=== PATIENT | male | born 1940 | race Caucasian/White ===

== ENCOUNTER 2017-05-20 23:33 | Emergency (ER) | payer MEDICARE, BC ==
--- NOTE | 2017-05-20 23:41 | EDM.PDOC ---
ED HPI GENERAL MEDICAL PROBLEM - General Chief Complaint: Gastrointestinal Problem Stated Complaint: Bloated Feeling; Mid back pain Time Seen by Provider: 05/20/17 23:33 Source of Information: Reports: Patient, Family, RN, RN Notes Reviewed History Limitations: Reports: No Limitations - History of Present Illness INITIAL COMMENTS - FREE TEXT/NARRATIVE: Patient presents to the ED at [facility] complaining of feeling bloated and mid back pain. Symptoms began around 10pm. Patient states he normally feels good. He was able to eat supper earlier tonight without any problems. 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 Patient denies any chest pain. No SOB, although he does wear oxygen. He is passing gas. He did try to have a BM earlier without success. Denies any UTI symptoms. Does have a history of kidney stones. Onset: Today, Sudden Onset Date: 05/20/17 Onset Time: 22:00 Duration: Constant, Getting Worse Location: Reports: Abdomen, Back Quality: Reports: Pressure Severity: Moderate Improves with: Reports: None Worsens with: Reports: Movement Context: Denies: Activity, Exercise, Lifting, Sick Contact, Trauma Associated Symptoms: Reports: No Other Symptoms - Related Data Allergies Allergy/AdvReac Type Severity Reaction Status Date / Time No Known Allergies Allergy Verified 05/21/17 00:21 Home Meds: Home Meds Albuterol [Proair HFA] 2 puff INH Q4H PRN 03/06/16 [History] Budesonide/Formoterol [Symbicort 160-4.5 MCG] 2 puff INH BID 03/06/16 [History] Diltiazem HCl [Diltiazem 24Hr ER] 120 mg PO DAILY 03/06/16 [History] Furosemide [Furosemide] 40 mg PO DAILY 03/06/16 [History] Simvastatin [Simvastatin] 40 mg PO DAILY 03/06/16 [History] SitaGLIPtin [Januvia] 100 mg PO DAILY 03/06/16 [History] amLODIPine Besylate/Benazepril [Amlodipine-Benazepril 5-10 MG] 1 cap PO DAILY [History] glipiZIDE [Glipizide] 10 mg PO BID 03/06/16 [History] metFORMIN [Glucophage] 1,000 mg PO BID 03/06/16 [History] Albuterol [Ventolin HFA] 8 gm INH Q6H PRN 05/21/17 [History] Aspirin [Adult Low Dose Aspirin EC] 81 mg PO DAILY 05/21/17 [History] Canagliflozin [Invokana] 300 mg PO DAILY 05/21/17 [History] Multivitamin [Multivitamins] 1 each PO DAILY 05/21/17 [History] Polyethylene Glycol 3350 [MiraLAX] 17 gm PO DAILY PRN 05/21/17 [History] Potassium Chloride [Klor-Con 10] 10 meq PO DAILY 05/21/17 [History] Tamsulosin HCl [Flomax] 0.4 mg PO DAILY 05/21/17 [History] Past Medical History Cardiovascular History: Reports: High Cholesterol, Hypertension, Pulmonary Hypertension Respiratory History: Reports: Sleep Apnea, Other (See Below) Other Respiratory History: On oxygen at home, 4liters per N/C., SOB, Hypoxia Endocrine/Metabolic History: Reports: Diabetes, Type II ED ROS GENERAL - Review of Systems Review Of Systems: See Below Constitutional: Denies: Fever, Chills, Weakness Respiratory: Denies: Shortness of Breath, Cough Cardiovascular: Denies: Chest Pain, Palpitations GI/Abdominal: Reports: Abdominal Pain, Distension. Denies: Diarrhea, Nausea, Vomiting Musculoskeletal: Reports: Back Pain Skin: Reports: No Symptoms Neurological: Reports: No Symptoms ED EXAM, GI/ABD - Physical Exam Exam: See Below Exam Limited By: No Limitations General Appearance: Alert, Mild Distress, Obese Respiratory/Chest: No Respiratory Distress, Lungs Clear, Decreased Breath Sounds Cardiovascular: Regular Rate, Rhythm GI/Abdominal Exam: Non-Tender, Distended, Abnormal Bowel Sounds (Hyperactive) Neurological: Alert, Oriented Skin Exam: Warm, Dry, Intact, Normal Color, No Rash EKG INTERPRETATION EKG Date: 05/21/17 Time: 23:54 Rhythm: NSR Rate (Beats/Min): 69 [place]: Normal P-Wave: Present QRS: RBBB ST-T: Normal QT: Normal WI/PQ Interval: 0.20 Comparison: NA - No Prior EKG EKG Interpretation Comments: 1. Sinus Rhythm with Sinus Arrhythmia 2. Low QRS voltage in precordial leads 3. Incomplete RBBB 4. Left Anterior Fascicular block 5. Possible anterior NH, probably old Course - Vital Signs Last Recorded V/S: Last Vital Signs Temp 35.3 C 05/20/17 23:33 Pulse 78 05/21/17 00:30 Resp 16 05/21/17 00:30 BP 128/88 05/21/17 00:30 Pulse Ox 96 05/21/17 00:30 - Orders/Labs/Meds Orders: Active Orders 24 hr Category Date Time Status EKG 12 Lead [EKG Documentation Completion] [RC] STAT Care 05/20/17 23:41 Active EKG 12 Lead [EKG Documentation Completion] [RC] STAT Care 05/21/17 00:57 Active Abdomen 2V AP Flat Upright [CR] Stat Exams 05/20/17 23:42 Taken Abdomen Pelvis wo Cont [CT] Stat Exams 05/21/17 00:58 Ordered Sodium Chloride 0.9% [Saline Flush] Med 05/20/17 23:43 Active 10 ml FLUSH ASDIRECTED PRN Peripheral IV Insertion Adult [OM.PC] Routine Oth 05/20/17 23:43 Ordered Medication Orders Sodium Chloride (Saline Flush) 10 ml FLUSH ASDIRECTED PRN PRN Reason: Keep Vein Open Labs: Laboratory Tests 05/21/17 05/21/17 05/21/17 Range/Units 00:07 00:07 00:07 WBC 10.5 H (4.0-10.0) x10^3/uL RBC 4.68 (4.5-6.0) x10^6/uL Hgb 14.3 (14.0-18.0) g/dL Hct 43.3 (40.0-52.0) % MCV 92.5 (78.0-93.0) fL MCH 30.6 (26.0-32.0) pg MCHC 33.0 (32.0-36.0) g/dL RDW Coeff of Willie 13.9 (10.0-15.0) % Plt Count 158 (130-400) x10^3/uL Neut % (Auto) 79.1 (50.0-80.0) % Lymph % (Auto) 12.3 L (25.0-50.0) % [place] % (Auto) 7.5 (2.0-11.0) % Eos % (Auto) 0.8 (0.0-4.0) % Baso % (Auto) 0.3 (0.2-1.2) % Sodium 141 (136-145) mmol/L Potassium 4.2 (3.5-5.1) mmol/L Chloride 105 (98-107) mmol/L Carbon Dioxide 29 (21-32) mmol/L BUN 19 H (7-18) mg/dL Creatinine 1.6 H (0.70-1.30) mg/dL Est Cr Clr Drug Dosing TNP Estimated GFR (MDRD) 42 Glucose 180 H (74-106) mg/dL Lactic Acid 1.0 (0.4-2.0) mmol/L Calcium 8.9 (8.5-10.1) mg/dL Creatine Kinase 34 L (39-308) U/L Troponin I 0.186 H* (<=0.056) ng/mL C-Reactive Protein 0.3 (<=0.9) mg/dL Amylase 31 (25-115) U/L Lipase 134 (73-393) U/L Urine Color (YELLOW) Urine Appearance (CLEAR) Urine pH (5.0-8.0) Ur Specific [place] Urine Protein (NEGATIVE) mg/dL Urine Glucose (UA) (NEGATIVE) mg/dL Urine Ketones (NEGATIVE) mg/dL Urine Occult Blood (NEGATIVE) Urine Nitrite (NEGATIVE) Urine Bilirubin (NEGATIVE) Urine Urobilinogen (0.2) EU/dL Ur Leukocyte Esterase (NEGATIVE) Urine RBC (NOT SEEN) /HPF Urine WBC (NOT SEEN) /HPF Ur Squamous Epith Cells (NEGATIVE) /HPF Amorphous Sediment Urine Bacteria (NEGATIVE) /HPF Urine Mucus (NEGATIVE) /LPF 05/21/17 Range/Units 00:35 WBC (4.0-10.0) x10^3/uL RBC (4.5-6.0) x10^6/uL Hgb (14.0-18.0) g/dL Hct (40.0-52.0) % MCV (78.0-93.0) fL MCH (26.0-32.0) pg MCHC (32.0-36.0) g/dL RDW Coeff of Willie (10.0-15.0) % Plt Count (130-400) x10^3/uL Neut % (Auto) (50.0-80.0) % Lymph % (Auto) (25.0-50.0) % [place] % (Auto) (2.0-11.0) % Eos % (Auto) (0.0-4.0) % Baso % (Auto) (0.2-1.2) % Sodium (136-145) mmol/L Potassium (3.5-5.1) mmol/L Chloride (98-107) mmol/L Carbon Dioxide (21-32) mmol/L BUN (7-18) mg/dL Creatinine (0.70-1.30) mg/dL Est Cr Clr Drug Dosing Estimated GFR (MDRD) Glucose (74-106) mg/dL Lactic Acid (0.4-2.0) mmol/L Calcium (8.5-10.1) mg/dL Creatine Kinase (39-308) U/L Troponin I (<=0.056) ng/mL C-Reactive Protein (<=0.9) mg/dL Amylase (25-115) U/L Lipase (73-393) U/L Urine Color Light yellow (YELLOW) Urine Appearance Slightly cloudy H (CLEAR) Urine pH 5.0 (5.0-8.0) Ur Specific [place] 1.010 Urine Protein Negative (NEGATIVE) mg/dL Urine Glucose (UA) 500 H (NEGATIVE) mg/dL Urine Ketones Trace H (NEGATIVE) mg/dL Urine Occult Blood Moderate H (NEGATIVE) Urine Nitrite Negative (NEGATIVE) Urine Bilirubin Negative (NEGATIVE) Urine Urobilinogen 0.2 (0.2) EU/dL Ur Leukocyte Esterase Negative (NEGATIVE) Urine RBC 10-20 H (NOT SEEN) /HPF Urine WBC Not seen (NOT SEEN) /HPF Ur Squamous Epith Cells Rare (NEGATIVE) /HPF Amorphous Sediment Rare Urine Bacteria Rare (NEGATIVE) /HPF Urine Mucus Rare H (NEGATIVE) /LPF Meds: Medications Generic Name Dose Route Start Last Admin Trade Name Freq PRN Reason Stop Dose Admin Sodium Chloride 10 ml 05/20/17 23:43 Saline Flush FLUSH ASDIRECTED PRN Keep Vein Open Departure - Departure Time of Disposition: 01:58 Disposition: Refer to Observation Condition: Good Clinical Impression: Elevated troponin - Discharge Information ED Communication - ED Communication Date/Time Date: 05/21/17 Time Called: 01:13 - Discussed Case With (1) Discussed Case With (1): Outpatient Provider Person/s Notified (1): Cindy Reagan - Conversation Summary Patient Aware of Amendments fo Care Plan: Yes Summary Comment: Discussed elevated troponin with Dr. Cindy Reagan, Cardiology. It is felt it may be from his current illness or elevated Creat. Dr. Reagan recommend admission for serial monitoring of Troponins with EKG's. - Problem List Review Problem List Initiated/Reviewed/Updated: Yes - My Orders Last 24 Hours: My Active Orders 05/20/17 23:41 EKG 12 Lead [EKG Documentation Completion] [RC] STAT 05/20/17 23:42 Abdomen 2V AP Flat Upright [CR] Stat 05/20/17 23:43 Sodium Chloride 0.9% [Saline Flush] 10 ml FLUSH ASDIRECTED PRN Peripheral IV Insertion Adult [OM.PC] Routine 05/21/17 00:57 EKG 12 Lead [EKG Documentation Completion] [RC] STAT 05/21/17 00:58 Abdomen Pelvis wo Cont [CT] Stat - Assessment/Plan Last 24 Hours: My Active Orders 05/20/17 23:41 EKG 12 Lead [EKG Documentation Completion] [RC] STAT 05/20/17 23:42 Abdomen 2V AP Flat Upright [CR] Stat 05/20/17 23:43 Sodium Chloride 0.9% [Saline Flush] 10 ml FLUSH ASDIRECTED PRN Peripheral IV Insertion Adult [OM.PC] Routine 05/21/17 00:57 EKG 12 Lead [EKG Documentation Completion] [RC] STAT 05/21/17 00:58 Abdomen Pelvis wo Cont [CT] Stat Plan: 05/21/2017 01:[address] Brittny Nesbitt. Patient will be admitted for monitoring Troponins with EKG. Awaiting CT Abd/Pelvis to r/o stone and eval ileus. Patient aware of admission and agrees with POC.
[2017-05-20] MEDS ORDERED: Sodium Chloride 0.9% 10 ML Syringe FLUSH PRN (23:43)
[2017-05-21 00:53] LABS: CHLORIDE,CL 105 mmol/L (98-107); SODIUM,NA 141 mmol/L (136-145)
[2017-05-21] MEDS ORDERED: Sodium Chloride 0.9% 1,000 ML IV ONE (02:59)
[2017-05-21] MEDS ORDERED: cefTRIAXone 1 GM Vial IVPUSH ONE (03:00)
[2017-05-21] MEDS ORDERED: Morphine 2 MG/ML Syringe IVPUSH ONE ×2 (03:00→03:05)
[2017-05-21 03:22] VITALS: BP 134/53
== END 2017-05-21 04:08 | disposition other institution (70) ==
LOC: VM.ED 23:33 → UNDOADMOB 05-21 01:57 → VM.MS 05-21 01:57 → UNDODISOB 05-21 01:58
DX: R79.89 Other specified abnormal findings of blood chemistry (principal); I10 Essential (primary) hypertension; I27.2 Other secondary pulmonary hypertension; E78.00 Pure hypercholesterolemia, unspecified; E11.9 Type 2 diabetes mellitus without complications; Z79.84 Long term (current) use of oral hypoglycemic drugs; Z79.82 Long term (current) use of aspirin; Z79.899 Other long term (current) drug therapy
CPT/HCPCS: 74020; 74176; 80048; 81001; 82150; 82550; 83605; 83690; 84484; 85025; 86140; 93005; 96361; 96374; 96375; 99285; J0696; J2270; J7030; 99284-GF

== ENCOUNTER 2017-06-24 19:09 | Observation (INO) | payer MEDICARE, BC ==
--- NOTE | 2017-06-24 20:17 | EDM.PDOC ---
ED HPI GENERAL MEDICAL PROBLEM - General Chief Complaint: Gastrointestinal Problem Stated Complaint: Constipation; Bloating Time Seen by Provider: 06/24/17 19:11 Source of Information: Reports: Patient, Family, RN, RN Notes Reviewed History Limitations: Reports: No Limitations - History of Present Illness INITIAL COMMENTS - FREE TEXT/NARRATIVE: Patient presents the emergency room at [facility] complaining of constipation and bloating. The patient states he recently underwent a left ureter stent removal with lithotripsy today at [facility] in [place]. Patient states that he mentioned to his care providers that he is constipated, but the patient states nothing was done. The patient states that he's had issues with his bowels for the past couple of months. The patient has been seen on several different occasions for his current symptomatology. Patient states that he does get abdominal cramping on an irregular basis. The patient denies any diarrhea. The patient states that his stools are hard and firm. The patient states that he has a difficult time passing stool. Otherwise no other concerns. Onset: Gradual Duration: Chronic - Related Data Allergies Allergy/AdvReac Type Severity Reaction Status Date / Time No Known Allergies Allergy Verified 05/21/17 00:21 Home Meds: Home Meds Albuterol [Proair HFA] 2 puff INH Q4H PRN 03/06/16 [History] Budesonide/Formoterol [Symbicort 160-4.5 MCG] 2 puff INH BID 03/06/16 [History] Diltiazem HCl [Diltiazem 24Hr ER] 120 mg PO DAILY 03/06/16 [History] Furosemide [Furosemide] 40 mg PO DAILY 03/06/16 [History] Simvastatin [Simvastatin] 40 mg PO DAILY 03/06/16 [History] SitaGLIPtin [Januvia] 100 mg PO DAILY 03/06/16 [History] amLODIPine Besylate/Benazepril [Amlodipine-Benazepril 5-10 MG] 1 cap PO DAILY [History] glipiZIDE [Glipizide] 10 mg PO BID 03/06/16 [History] metFORMIN [Glucophage] 1,000 mg PO BID 03/06/16 [History] Albuterol [Ventolin HFA] 8 gm INH Q6H PRN 05/21/17 [History] Aspirin [Adult Low Dose Aspirin EC] 81 mg PO DAILY 05/21/17 [History] Canagliflozin [Invokana] 300 mg PO DAILY 05/21/17 [History] Multivitamin [Multivitamins] 1 each PO DAILY 05/21/17 [History] Polyethylene Glycol 3350 [MiraLAX] 17 gm PO DAILY PRN 05/21/17 [History] Potassium Chloride [Klor-Con 10] 10 meq PO DAILY 05/21/17 [History] Tamsulosin HCl [Flomax] 0.4 mg PO DAILY 05/21/17 [History] Past Medical History Cardiovascular History: Reports: High Cholesterol, Hypertension, Pulmonary Hypertension Respiratory History: Reports: Sleep Apnea, Other (See Below) Other Respiratory History: On oxygen at home, 4liters per N/C., SOB, Hypoxia Endocrine/Metabolic History: Reports: Diabetes, Type II Social & Family History - Tobacco Use Smoking Status *Q: Unknown Ever Smoked ED ROS GENERAL - Review of Systems Review Of Systems: See Below Constitutional: Denies: Fever, Chills, Weakness Respiratory: Denies: Shortness of Breath, Cough Cardiovascular: Denies: Chest Pain, Palpitations GI/Abdominal: Reports: Abdominal Pain, Constipation, Distension. Denies: Black Stool, Bloody Stool, Diarrhea, Nausea, Vomiting Skin: Reports: No Symptoms Neurological: Reports: No Symptoms. Denies: Dizziness, Headache ED EXAM, GI/ABD - Physical Exam Exam: See Below Exam Limited By: No Limitations General Appearance: Alert, No Apparent Distress, Obese Respiratory/Chest: No Respiratory Distress, Lungs Clear, Normal Breath Sounds Cardiovascular: Regular Rate, Rhythm GI/Abdominal Exam: Distended, Rigid, Abnormal Bowel Sounds (Hypoactive). No: Rebound Neurological: Alert, Oriented Course - Orders/Labs/Meds Orders: Active Orders 24 hr Category Date Time Status Admission Status [Patient Status] [ADT] Routine ADT 06/24/17 21:01 Ordered Abdomen 2V AP Flat Upright [CR] Stat Exams 06/24/17 20:17 Taken Departure - Departure Time of Disposition: 21:03 Disposition: Refer to Observation Condition: Good Clinical Impression: Abdominal pain, Abdominal pain, Constipation - Discharge Information - Problem List & Annotations (1) Abdominal pain SNOMED Code(s): 48496471 Code(s): R10.9 - UNSPECIFIED ABDOMINAL PAIN Status: Acute Priority: High Current Visit: Yes Qualifiers: Abdominal location: generalized Qualified Code(s): R10.84 - Generalized abdominal pain (2) Constipation SNOMED Code(s): 85791665 Code(s): K59.00 - CONSTIPATION, UNSPECIFIED Status: Chronic Current Visit : Yes Qualifiers: Constipation type: slow transit constipation Qualified Code(s): K59.01 - Slow transit constipation - Problem List Review Problem List Initiated/Reviewed/Updated: Yes - My Orders Last 24 Hours: My Active Orders 06/24/17 20:17 Abdomen 2V AP Flat Upright [CR] Stat 06/24/17 21:01 Admission Status [Patient Status] [ADT] Routine - Assessment/Plan Admission H&P: Please use this note as an admission H&P Last 24 Hours: My Active Orders 06/24/17 20:17 Abdomen 2V AP Flat Upright [CR] Stat 06/24/17 21:01 Admission Status [Patient Status] [ADT] Routine
[2017-06-24] MEDS ORDERED: Sodium Chloride 0.9% 1,000 ML IV ONE (21:47)
[2017-06-24] MEDS ORDERED: Sodium Chloride 0.9% 10 ML Syringe FLUSH PRN (21:47)
[2017-06-24] MEDS ORDERED: Polyethylene Glycol 3350 Powder 17 GM Packet PO ONE (21:50)
[2017-06-24] MEDS ORDERED: methylPREDNISolone Sodium Succinate 125 MG/2 ML SDV IVPUSH ONE (21:51)
[2017-06-24] MEDS ORDERED: Bisacodyl 10 MG Supp RECTAL PRN (21:52)
[2017-06-24] MEDS ORDERED: Ondansetron 4 MG/2 ML SDV IVPUSH PRN (22:37)
[2017-06-24] MEDS ORDERED: Zolpidem 5 MG Tab PO PRN (22:38)
[2017-06-24] MEDS ORDERED: Morphine 2 MG/ML Syringe IVPUSH PRN (22:38)
[2017-06-24] MEDS ORDERED: Acetaminophen 325 MG Tab PO PRN (22:38)
[2017-06-24] MEDS ORDERED: Docusate Sodium 100 MG Cap PO PRN (22:38)
[2017-06-24] MEDS ORDERED: Bisacodyl 5 MG Tab PO PRN (22:38)
[2017-06-24] MEDS: Metoclopramide 10 MG/2 ML SDV IVPUSH SCH (22:55)
[2017-06-24] MEDS: Sodium Phosphate,Monobasic/Sodium Phosphate,Dibasic Enema 133 ML Bottle RECTAL ONE (22:55)
[2017-06-25] MEDS: Pantoprazole 40 MG Vial IV SCH ×2 (00:10→08:19)
[2017-06-25] MEDS: Sodium Phosphate,Monobasic/Sodium Phosphate,Dibasic Enema 133 ML Bottle RECTAL ONE (02:50)
[2017-06-25] MEDS: Metoclopramide 10 MG/2 ML SDV IVPUSH SCH ×3 (03:33→15:47)
[2017-06-25] MEDS ORDERED: amLODIPine 5 MG Tab PO SCH (08:00)
[2017-06-25] MEDS ORDERED: [UNRECOGNIZED DRUG - OTHER] PO SCH (08:00)
[2017-06-25] MEDS ORDERED: AMLODIPINE BESYLATE PO SCH (08:00)
[2017-06-25] MEDS ORDERED: Non-Formulary Medication 1 Each (Budesonide/Formoterol Fumarate 2 PUFF) INH SCH (08:00)
[2017-06-25] MEDS ORDERED: Lisinopril 10 MG Tab PO SCH (08:00)
[2017-06-25] MEDS ORDERED: BENAZEPRIL PO SCH (08:00)
[2017-06-25] MEDS: Formoterol/Mometasone 200-5 MCG 8.8 GM Inhaler IH SCH ×2 (08:08→08:19)
[2017-06-25] MEDS: Potassium Chloride 10 MEQ Tab.ER PO SCH ×2 (08:09→15:47)
[2017-06-25] MEDS: Furosemide 20 MG Tab PO SCH ×2 (08:09→15:45)
[2017-06-25] MEDS: Diltiazem 120 MG Cap.CD PO SCH ×2 (08:09→15:45)
[2017-06-25] MEDS: Aspirin 81 MG Tab.EC PO SCH ×2 (08:09→15:46)
[2017-06-25] MEDS: Diatrizoate Meglumine/Diatrizoate Sodium 37% 30 ML Bottle PO SCH ×4 (10:27→12:06)
[2017-06-25] MEDS ORDERED: Sodium Chloride 0.9% 1,000 ML IV ONE (12:20)
--- NOTE | 2017-06-25 12:32 | PCM.PN ---
- General Info Date of Service: 06/25/17 Admission Dx/Problem (Free Text): 1. Abdominal Pain 2. Possible SBO 3. Constipation Functional Status: Reports: Pain Controlled, Ambulating, Urinating Pain Score: 4 - Review of Systems General: Denies: Fever, Weakness, Chills Pulmonary: Denies: Shortness of Breath, Cough Cardiovascular: Denies: Chest Pain, Palpitations Gastrointestinal: Reports: Abdominal Pain, Diarrhea. Denies: Nausea Skin: Reports: No Symptoms Neurological: Reports: No Symptoms - Patient Data Vitals - Most Recent: Last Vital Signs Temp 36.2 C 06/25/17 09:53 Pulse 100 06/25/17 09:53 Resp 20 06/25/17 09:53 BP 139/57 L 06/25/17 09:53 Pulse Ox 96 06/25/17 09:53 Weight - Most Recent: 109.543 kg I&O - Last 24 Hours: Intake & Output 06/24/17 06/25/17 06/25/17 22:59 06:59 14:59 Intake Total 999 Output Total 1800 525 Balance -801 -525 Lab Results Last 24 Hours: Laboratory Results - last 24 hr 06/25/17 06/25/17 06/25/17 Range/Units 06:52 10:17 10:17 WBC 8.8 (4.0-10.0) x10^3/uL RBC 4.64 (4.5-6.0) x10^6/uL Hgb 14.0 (14.0-18.0) g/dL Hct 43.4 (40.0-52.0) % MCV 93.5 H (78.0-93.0) fL MCH 30.2 (26.0-32.0) pg MCHC 32.3 (32.0-36.0) g/dL RDW Coeff of Willie 14.0 (10.0-15.0) % Plt Count 182 (130-400) x10^3/uL Neut % (Auto) 94.9 H (50.0-80.0) % Lymph % (Auto) 4.0 L (25.0-50.0) % [place] % (Auto) 0.9 L (2.0-11.0) % Eos % (Auto) 0.0 (0.0-4.0) % Baso % (Auto) 0.2 (0.2-1.2) % Sodium 141 (136-145) mmol/L Potassium 4.3 (3.5-5.1) mmol/L Chloride 103 (98-107) mmol/L Carbon Dioxide 22 (21-32) mmol/L BUN 24 H (7-18) mg/dL Creatinine 1.4 H (0.70-1.30) mg/dL Est Cr Clr Drug Dosing 41.39 mL/min Estimated GFR (MDRD) 49 Glucose 301 H (74-106) mg/dL POC Glucose 253 H (74-106) mg/dL Calcium 8.7 (8.5-10.1) mg/dL Med Orders - Current: Current Medications Acetaminophen (Tylenol) 650 mg PO Q4H PRN PRN Reason: Pain (Mild 1-3)/fever Aspirin (Halfprin) 81 mg PO DAILY [facility] Last Admin: 06/25/17 08:09 Dose: Not Given Bisacodyl (Dulcolax) 10 mg RECTAL DAILY PRN PRN Reason: Constipation Last Admin: 06/24/17 22:55 Dose: 10 mg Bisacodyl (Dulcolax) 5 mg PO DAILY PRN PRN Reason: Constipation Last Admin: 06/25/17 02:49 Dose: 5 mg Diltiazem HCl (Cardizem Cd) 120 mg PO DAILY [facility] Last Admin: 06/25/17 08:09 Dose: Not Given Docusate Sodium (Colace) 100 mg PO BID PRN PRN Reason: Constipation Furosemide (Lasix) 20 mg PO DAILY [facility] Last Admin: 06/25/17 08:09 Dose: Not Given Glipizide (Glucotrol) 10 mg PO BIDAC [facility] Last Admin: 06/25/17 08:08 Dose: Not Given Sodium Chloride (Normal Saline) 1,000 mls @ 999 mls/hr IV ONETIME ONE Stop: 06/25/17 13:20 Metformin HCl (Glucophage) 1,000 mg PO BID [facility] Metoclopramide HCl (Reglan) 10 mg IVPUSH Q6H [facility] Last Admin: 06/25/17 10:20 Dose: 10 mg Mometasone Furoate/Formoterol Fumar (Dulera 200-5 Mcg) 2 puff IH BIDRT [facility] Last Admin: 06/25/17 08:19 Dose: 2 puff Morphine Sulfate (Morphine) 2 mg IVPUSH Q2H PRN PRN Reason: Pain (severe 7-10) Ondansetron HCl (Zofran) 4 mg IVPUSH Q6H PRN PRN Reason: Nausea/Vomiting Pantoprazole Sodium (Protonix Iv) 40 mg IV DAILY [facility] Last Admin: 06/25/17 08:19 Dose: 40 mg Invokana [ Canagliflozin] 300 Mg *Ptom* 1 each PO ACBREAKFAST [facility] Amlodipine/Benazepril (Lotrel) 5-10mg *Ptom* 1 each PO DAILY [facility] Potassium Chloride (Klor-Con 10) 10 meq PO DAILY [facility] Last Admin: 06/25/17 08:09 Dose: Not Given Simvastatin (Zocor) 40 mg PO DAILY@2000 [facility] Sodium Chloride (Saline Flush) 10 ml FLUSH ASDIRECTED PRN PRN Reason: Keep Vein Open Tamsulosin HCl (Flomax) 0.4 mg PO BEDTIME [facility] Zolpidem Tartrate (Ambien) 5 mg PO BEDTIME PRN PRN Reason: Sleep Discontinued Medications Amlodipine Besylate (Norvasc) 5 mg PO DAILY [facility] Last Admin: 06/25/17 08:10 Dose: Not Given Diatrizoate Meglum/Diatrizoate Sod (Gastrografin 37%) 10 ml PO Q30M [facility] Stop: 06/25/17 10:01 Last Admin: 06/25/17 10:27 Dose: Not Given Diatrizoate Meglum/Diatrizoate Sod (Gastrografin 37%) 10 ml PO Q30M [facility] Stop: 06/25/17 11:46 Last Admin: 06/25/17 12:06 Dose: 10 ml Sodium Chloride (Normal Saline) 1,000 mls @ 999 mls/hr IV ONETIME ONE Stop: 06/24/17 22:47 Last Admin: 06/24/17 22:52 Dose: 999 mls/hr Lisinopril (Prinivil) 10 mg PO DAILY [facility] Last Admin: 06/25/17 08:10 Dose: Not Given Methylprednisolone Sodium Succinate (Solu-Medrol) 125 mg IVPUSH ONETIME ONE Stop: 06/24/17 21:52 Last Admin: 06/24/17 22:54 Dose: 125 mg Non-Formulary Medication (Amlodipine Besylate/Benazepril [Amlodipine-Benazepril 5-10 Mg]) 5 - 10 mg PO DAILY [facility] Polyethylene Glycol (Miralax) 17 gm PO ONETIME ONE Stop: 06/24/17 21:51 Last Admin: 06/24/17 22:54 Dose: 17 gm Sodium Biphosphate/Sodium Phosphate (Fleet Enema) 133 ml RECTAL ONETIME ONE Stop: 06/24/17 21:49 Last Admin: 06/25/17 02:50 Dose: 1 bottle - Exam Quality Assessment: Supplemental Oxygen (at bedtime) General: Alert, Oriented, Cooperative, No Acute Distress Lungs: Clear to Auscultation, Normal Respiratory Effort Cardiovascular: Regular Rhythm GI/Abdominal Exam: Distended, Tender, Abnormal Bowel Sounds (Hypoactive) Skin: Warm, Dry, Intact Neurological: No New Focal Deficit, Normal Speech - Problem List & Annotations (1) Abdominal pain SNOMED Code(s): 91694321 Code(s): R10.9 - UNSPECIFIED ABDOMINAL PAIN Status: Acute Priority: High Current Visit: Yes Qualifiers: Abdominal location: generalized Qualified Code(s): R10.84 - Generalized abdominal pain (2) Constipation SNOMED Code(s): 05982563 Code(s): K59.00 - CONSTIPATION, UNSPECIFIED Status: Chronic Current Visit : Yes Qualifiers: Constipation type: slow transit constipation Qualified Code(s): K59.01 - Slow transit constipation - Problem List Review Problem List Initiated/Reviewed/Updated: Yes - My Orders Last 24 Hours: My Active Orders 06/24/17 21:47 Sodium Chloride 0.9% [Saline Flush] 10 ml FLUSH ASDIRECTED PRN Peripheral IV Insertion Adult [OM.PC] Routine 06/24/17 21:52 Bisacodyl [Dulcolax] 10 mg RECTAL DAILY PRN 06/24/17 22:00 Metoclopramide [Reglan] 10 mg IVPUSH Q6H 06/24/17 22:37 Ondansetron [Zofran] 4 mg IVPUSH Q6H PRN 06/24/17 22:38 Patient Status [ADT] Routine Ambulate [RC] ASDIRECTED Height and Weight [RC] .PRN May Shower [RC] 08,20 Oxygen Therapy [RC] .PRN VTE/DVT Education [RC] .PRN Vital Signs [RC] 02,06,10,14,18,22 Acetaminophen [Tylenol] 650 mg PO Q4H PRN Bisacodyl [Dulcolax] 5 mg PO DAILY PRN Docusate Sodium [Colace] 100 mg PO BID PRN Morphine 2 mg IVPUSH Q2H PRN Zolpidem [Ambien] 5 mg PO BEDTIME PRN Resuscitation Status Routine 06/24/17 22:39 Ambulate [RC] PER UNIT ROUTINE Intake and Output [RC] ,18 06/24/17 22:45 Pantoprazole [ProTONIX IV] 40 mg IV DAILY 06/25/17 07:00 Mometasone/Formoterol [Dulera 200-5 MCG] 2 puff IH BIDRT glipiZIDE [Glucotrol] 10 mg PO BIDAC 06/25/17 08:00 Abdomen Pelvis w Cont [CT] Routine Aspirin [Halfprin] 81 mg PO DAILY Diltiazem [Cardizem CD] 120 mg PO DAILY Furosemide [Lasix] 20 mg PO DAILY Potassium Chloride [Klor-Con 10] 10 meq PO DAILY 06/25/17 11:25 Blood Glucose Check, Bedside [RC] 07,11,17,20 06/25/17 12:20 Sodium Chloride 0.9% [Normal Saline] 1,000 ml IV ONETIME 06/25/17 20:00 Simvastatin [Zocor] 40 mg PO DAILY@2000 Tamsulosin [Flomax] 0.4 mg PO BEDTIME 06/26/17 07:00 Patient's Own Medication [Ptom] 1 each PO ACBREAKFAST 06/26/17 08:00 Patient's Own Medication [Ptom] 1 each PO DAILY 06/27/17 20:00 metFORMIN [Glucophage] 1,000 mg PO BID - Assessment Assessment:: 1. Abdominal Pain 2. Possible SBO vs Ileus 3. Slow Transient Constipation - Plan Plan:: 77-year-old male is admitted for abdominal pain, constipation, possible small bowel obstruction versus ileus. The patient received a considerable amount of medications last night for constipation with moderate relief. The patient's flat plate x-ray showed small bowel obstruction versus ileus, so today we will obtain a CT scan of the abdomen and pelvis with contrast to further evaluate. We will start the patient on IV fluids since he is getting contrast and has a slightly elevated creatinine today. We will leave the patient nothing by mouth until I have the results of the CAT scan. We will continue the patient's home medications without any changes. If the patient does have a small bowel obstruction we will consult the surgery department at [facility] to see if further workup is warranted.
[2017-06-25 14:19] VITALS: BP 140/60
[2017-06-25] MEDS ORDERED: Iopamidol 612 MG/ML 100 ML Bottle IVPUSH ONE (14:30)
[2017-06-25] MEDS ORDERED: Sodium Chloride 0.9% 100 ML IV SCH (14:30)
--- NOTE | 2017-06-25 15:54 | PCM.DCSUM1 ---
Discharge Summary - Hospital Course HPI Initial Comments: Patient presented to the emergency room at [facility] complaining of constipation and bloating. The patient stated he recently underwent a left ureter stent with lithotripsy yesterday at [facility] in [place]. Patient states that he mentioned to his care providers that he is constipated, but the patient states nothing was done. The patient states that he's had issues with his bowels for the past couple of months. The patient has been seen on several different occasions for his current symptomatology. Patient states that he does get abdominal cramping on an irregular basis. The patient denies any diarrhea. The patient states that his stools are hard and firm. The patient states that he has a difficult time passing stool. Otherwise no other concerns. Therefore, patient was admitted observation for further treatment and testing. - Discharge Data Discharge Date: 06/25/17 Discharge Disposition: Home, Self-Care 01 Condition: Good - Discharge Diagnosis/Problem(s) (1) Abdominal pain SNOMED Code(s): 45210743 ICD Code: R10.9 - UNSPECIFIED ABDOMINAL PAIN Status: Resolved Priority: High Current Visit: Yes Qualifiers: Abdominal location: generalized Qualified Code(s): R10.84 - Generalized abdominal pain (2) Constipation SNOMED Code(s): 79151302 ICD Code: K59.00 - CONSTIPATION, UNSPECIFIED Status: Resolved Current Visit: Yes Qualifiers: Constipation type: slow transit constipation Qualified Code(s): K59.01 - Slow transit constipation - Patient Summary/Data Operative Procedure(s) Performed: None Labs Pending at D/C: None Hospital Course: Overall patient did well during his stay on observation. The patient did have one good sized bowel movement last night, which really seemed to help his symptomatology. The patient's pain remained well controlled. The patient continued with his home medications without any problems. The patient states that his abdominal pain has resolved. The patient remained hemodynamically stable. The patient did not have any fevers. - Patient Instructions Diet: Diabetic Diet Activity: Rest and Relax Today Driving: Do Not Drive Showering/Bathing: February Shower Notify Provider of: Fever, Increased Pain - Discharge Plan Home Medications: Home Meds Albuterol [Proair HFA] 2 puff INH Q4H PRN 03/06/16 [History] Budesonide/Formoterol [Symbicort 160-4.5 MCG] 2 puff INH BID 03/06/16 [History] Diltiazem HCl [Diltiazem 24Hr ER] 120 mg PO DAILY 03/06/16 [History] Furosemide 20 mg PO DAILY 03/06/16 [History] Simvastatin 40 mg PO DAILY 03/06/16 [History] amLODIPine Besylate/Benazepril [Amlodipine-Benazepril 5-10 MG] 1 cap PO DAILY [History] glipiZIDE [Glipizide] 10 mg PO BID 03/06/16 [History] metFORMIN [Glucophage] 1,000 mg PO BIDMEALS 03/06/16 [History] Aspirin [Adult Low Dose Aspirin EC] 81 mg PO DAILY 05/21/17 [History] Canagliflozin [Invokana] 300 mg PO ACBREAKFAST 05/21/17 [History] Multivitamin [Multivitamins] 1 each PO DAILY 05/21/17 [History] Polyethylene Glycol 3350 [MiraLAX] 17 gm PO DAILY 05/21/17 [History] Potassium Chloride [Klor-Con 10] 10 meq PO DAILY 05/21/17 [History] Tamsulosin HCl [Flomax] 0.4 mg PO DAILY 05/21/17 [History] Ciprofloxacin [Ciprofloxacin HCl] 250 mg PO BID 06/25/17 [History] Patient's Own Medication [Ptom] 1 each PO DAILY each 06/25/17 [Rx] Sennosides/Docusate Sodium [Senna-Docusate Sodium Tablet] 1 tab PO ASDIRECTED PRN 06/25/17 [History] oxyCODONE HCl [Roxicodone] 5 mg PO Q4HR PRN 06/25/17 [History] Patient Handouts: Constipation, Adult Referrals: PCP,Not In Area [Primary Care Provider] - - Discharge Summary/Plan Comment DC Time >30 min.: Yes Discharge Summary/Plan Comment: 77-year-old patient was admitted to the observation unit at [facility] for abdominal pain, constipation, and possible ileus versus small bowel obstruction. The patient underwent a CT scan of the abdomen and pelvis with IV and oral contrast today. According to the patient's radiology report, ileus and small bowel obstruction were ruled out. Overall the CT scan of the abdomen and pelvis was negative for any acute pathology. The patient will be discharged home today. We will continue the patient on his current medications without any changes. I recommend to the patient that he follow-up with his primary care provider for a post hospital follow-up. I discussed the patient is to stay well hydrated. The patient is to start taking ciprofloxacin tomorrow, per urology orders. All questions were answered. The patient was discharged in hemodynamically stable condition. - General Info Date of Service: 06/25/17 Admission Dx/Problem (Free Text: 1. Abdominal Pain 2. Possible SBO 3. Constipation Functional Status: Reports: Pain Controlled, Ambulating, Urinating - Review of Systems General: Denies: Fever, Weakness Pulmonary: Denies: Shortness of Breath, Cough Cardiovascular: Denies: Chest Pain, Palpitations Gastrointestinal: Denies: Abdominal Pain, Diarrhea, Nausea, Vomiting Skin: Reports: No Symptoms Neurological: Reports: No Symptoms - Patient Data Vitals - Most Recent: Last Vital Signs Temp 37.2 C 06/25/17 14:00 Pulse 88 06/25/17 15:45 Resp 20 06/25/17 14:00 BP 140/60 06/25/17 15:45 Pulse Ox 92 L 06/25/17 14:00 Weight - Most Recent: 109.543 kg I&O - Last 24 hours: Intake & Output 06/25/17 06/25/17 06/25/17 06:59 14:59 22:59 Intake Total 999 Output Total 1800 525 Balance -801 -525 Lab Results - Last 24 hrs: Laboratory Results - last 24 hr 06/25/17 06/25/17 06/25/17 Range/Units 06:52 10:17 10:17 WBC 8.8 (4.0-10.0) x10^3/uL RBC 4.64 (4.5-6.0) x10^6/uL Hgb 14.0 (14.0-18.0) g/dL Hct 43.4 (40.0-52.0) % MCV 93.5 H (78.0-93.0) fL MCH 30.2 (26.0-32.0) pg MCHC 32.3 (32.0-36.0) g/dL RDW Coeff of Willie 14.0 (10.0-15.0) % Plt Count 182 (130-400) x10^3/uL Neut % (Auto) 94.9 H (50.0-80.0) % Lymph % (Auto) 4.0 L (25.0-50.0) % Brewster % (Auto) 0.9 L (2.0-11.0) % Eos % (Auto) 0.0 (0.0-4.0) % Baso % (Auto) 0.2 (0.2-1.2) % Sodium 141 (136-145) mmol/L Potassium 4.3 (3.5-5.1) mmol/L Chloride 103 (98-107) mmol/L Carbon Dioxide 22 (21-32) mmol/L BUN 24 H (7-18) mg/dL Creatinine 1.4 H (0.70-1.30) mg/dL Est Cr Clr Drug Dosing 41.39 mL/min Estimated GFR (MDRD) 49 Glucose 301 H (74-106) mg/dL POC Glucose 253 H (74-106) mg/dL Calcium 8.7 (8.5-10.1) mg/dL Med Orders - Current: Current Medications Acetaminophen (Tylenol) 650 mg PO Q4H PRN PRN Reason: Pain (Mild 1-3)/fever Aspirin (Halfprin) 81 mg PO DAILY [facility] Last Admin: 06/25/17 15:46 Dose: 81 mg Bisacodyl (Dulcolax) 10 mg RECTAL DAILY PRN PRN Reason: Constipation Last Admin: 06/24/17 22:55 Dose: 10 mg Bisacodyl (Dulcolax) 5 mg PO DAILY PRN PRN Reason: Constipation Last Admin: 06/25/17 02:49 Dose: 5 mg Diltiazem HCl (Cardizem Cd) 120 mg PO DAILY [facility] Last Admin: 06/25/17 15:45 Dose: 120 mg Docusate Sodium (Colace) 100 mg PO BID PRN PRN Reason: Constipation Furosemide (Lasix) 20 mg PO DAILY [facility] Last Admin: 06/25/17 15:45 Dose: 20 mg Glipizide (Glucotrol) 10 mg PO BIDAC [facility] Last Admin: 06/25/17 15:46 Dose: 10 mg Sodium Chloride (Normal Saline) 100 mls @ 3 mls/sec IV ASDIRECTED [facility] Last Admin: 06/25/17 14:27 Dose: 3 mls/sec Metformin HCl (Glucophage) 1,000 mg PO BID [facility] Metoclopramide HCl (Reglan) 10 mg IVPUSH Q6H [facility] Last Admin: 06/25/17 15:47 Dose: 10 mg Mometasone Furoate/Formoterol Fumar (Dulera 200-5 Mcg) 2 puff IH BIDRT [facility] Last Admin: 06/25/17 08:19 Dose: 2 puff Morphine Sulfate (Morphine) 2 mg IVPUSH Q2H PRN PRN Reason: Pain (severe 7-10) Ondansetron HCl (Zofran) 4 mg IVPUSH Q6H PRN PRN Reason: Nausea/Vomiting Pantoprazole Sodium (Protonix Iv) 40 mg IV DAILY [facility] Last Admin: 06/25/17 08:19 Dose: 40 mg Invokana [ Canagliflozin] 300 Mg *Ptom* 1 each PO ACBREAKFAST [facility] Amlodipine/Benazepril (Lotrel) 5-10mg *Ptom* 1 each PO DAILY [facility] Potassium Chloride (Klor-Con 10) 10 meq PO DAILY [facility] [place] Last Admin: 06/25/17 15:47 Dose: 10 meq Simvastatin (Zocor) 40 mg PO DAILY@2000 [facility] Sodium Chloride (Saline Flush) 10 ml FLUSH ASDIRECTED PRN PRN Reason: Keep Vein Open Tamsulosin HCl (Flomax) 0.4 mg PO BEDTIME [facility] Zolpidem Tartrate (Ambien) 5 mg PO BEDTIME PRN PRN Reason: Sleep Discontinued Medications Amlodipine Besylate (Norvasc) 5 mg PO DAILY [facility] Last Admin: 06/25/17 08:10 Dose: Not Given Diatrizoate Meglum/Diatrizoate Sod (Gastrografin 37%) 10 ml PO Q30M [facility] Stop: 06/25/17 10:01 Last Admin: 06/25/17 10:27 Dose: Not Given Diatrizoate Meglum/Diatrizoate Sod (Gastrografin 37%) 10 ml PO Q30M [facility] [place] Stop: 06/25/17 11:46 Last Admin: 06/25/17 12:06 Dose: 10 ml Sodium Chloride (Normal Saline) 1,000 mls @ 999 mls/hr IV ONETIME ONE Stop: 06/24/17 22:47 Last Admin: 06/24/17 22:52 Dose: 999 mls/hr Sodium Chloride (Normal Saline) 1,000 mls @ 999 mls/hr IV ONETIME ONE Stop: 06/25/17 13:20 Last Admin: 06/25/17 13:41 Dose: 999 mls/hr Iopamidol (Isovue-300 (61%)) 100 ml IVPUSH ONETIME ONE Stop: 06/25/17 14:31 Last Admin: 06/25/17 14:27 Dose: 100 ml Lisinopril (Prinivil) 10 mg PO DAILY [facility] [place] Last Admin: 06/25/17 08:10 Dose: Not Given Methylprednisolone Sodium Succinate (Solu-Medrol) 125 mg IVPUSH ONETIME ONE Stop: 06/24/17 21:52 Last Admin: 06/24/17 22:54 Dose: 125 mg Non-Formulary Medication (Amlodipine Besylate/Benazepril [Amlodipine-Benazepril 5-10 Mg]) 5 - 10 mg PO DAILY [facility] Polyethylene Glycol (Miralax) 17 gm PO ONETIME ONE Stop: 06/24/17 21:51 Last Admin: 06/24/17 22:54 Dose: 17 gm Sodium Biphosphate/Sodium Phosphate (Fleet Enema) 133 ml RECTAL ONETIME ONE Stop: 06/24/17 21:49 Last Admin: 06/25/17 02:50 Dose: 1 bottle - Exam General: Reports: Alert, Oriented, Cooperative Lungs: Reports: Clear to Auscultation, Normal Respiratory Effort Cardiovascular: Reports: Regular Rate, Regular Rhythm GI/Abdominal Exam: Soft, Non-Tender, Abnormal Bowel Sounds (Hypoactive) Skin: Reports: Warm, Dry, Intact Neurological: Reports: No New Focal Deficit, Normal Speech *Q Meaningful Use (DIS) - VTE *Q VTE Criteria *Q: None - Stroke *Q Stroke Criteria *Q: - AMI *Q AMI Criteria *Q:
[2017-06-25] MEDS ORDERED: Simvastatin 40 MG Tab PO SCH (20:00)
[2017-06-25] MEDS ORDERED: Tamsulosin 0.4 MG Cap.ER PO SCH (20:00)
[2017-06-26] MEDS ORDERED: INVOKANA 300 MG PO SCH (07:00)
[2017-06-26] MEDS ORDERED: AMLODIPINE PO SCH (08:00)
[2017-06-26] MEDS ORDERED: BENAZEPRIL PO SCH (08:00)
[2017-06-27] MEDS ORDERED: metFORMIN 500 MG Tab PO SCH (20:00)
== END 2017-06-25 16:40 | disposition home or self-care (01) ==
LOC: VM.ED 19:09 → VM.MS 21:01
PROVIDERS: ADMIT Nurse Practitioner Family; ATTEND Nurse Practitioner Family
DX: K59.01 Slow transit constipation (principal); Z79.51 Long term (current) use of inhaled steroids; Z79.84 Long term (current) use of oral hypoglycemic drugs; Z79.82 Long term (current) use of aspirin; Z79.899 Other long term (current) drug therapy
CPT/HCPCS: 36415; 74020; 74177; 80048; 82962; 85025; 94760; 96361; 96374; 96375; 96376; 99284; A9270; C9113; G0378; J2765; J2930; J7030; J7050; Q9967; 99217; 99220